=== PATIENT | female | born 1990 | race Caucasian/White ===

== ENCOUNTER 2017-07-20 17:05 | Outpatient (CLI) | payer BC ==
[~2017-07-20] VITALS: Ht 167.6 cm; Wt 83.0 kg
[2017-07-20 17:17] VITALS: BP 111/62
== END 2017-07-20 18:09 | disposition home or self-care (01) ==
LOC: LDRP-OP → 2WEST 17:08 → LDRP-OP 11-11 16:38
DX: O76 Abnormality in fetal heart rate and rhythm complicating labor and delivery (principal); Z3A.28 28 weeks gestation of pregnancy; O99.012 Anemia complicating pregnancy, second trimester; D64.9 Anemia, unspecified
CPT/HCPCS: 59025; G0378